=== PATIENT | male | born 1985 | race Two or more races ===

== ENCOUNTER 2025-04-30 14:38 | Inpatient (IN) | payer MEDICAID, OTHER ==
[~2025-04-30] VITALS: Ht 162.6 cm; Wt 79.7 kg
--- NOTE | 2025-04-30 15:28 | ED.PDOC ---
Musculoskeletal HPI Comments 40-year-old male presents to the emergency department with a chief complaint of lower extremity swelling. Patient states he has been experiencing left lower leg swelling and erythema x4 days. At this time patient is reluctant to answer questions regarding his social history. Patient denies trauma, injury, fall, shortness of breath, or chest pain. No other symptoms or modifying factors are present at this time. Chief Complaint: Lower Extremity Time Seen by MD: 15:25 Reviewed Notes: Nurses Notes, Medications, Allergies Allergies: Coded Allergies: NO KNOWN ALLERGIES (Unverified , 04/30/25) Information Source: Patient Mode of Arrival: Ambulatory Location: Left Extremity Location: Leg Timing: Days Prehospital treatment: None Severity: Moderate Able to Move Extremity: Yes Bear Weight: Fully Pain: Moderate Mechanism: Spontaneous Circumstances: Spontaneous Onset of Symptoms: Spontaneous Symptoms: Swelling, Pain, Erythema DVT Risk Factors: NONE Last Tetanus: Unknown Associated signs and symptoms: Swelling, Leg pain Past Medical History PAST MEDICAL HISTORY: Denies Surgical History: Denies all surgeries Family History Family History: Unknown Social History Smoker: Cigarettes Alcohol: Denies ETOH Use Drugs: Unknown Lives In: Home Constitutional: denies: chills, diaphoresis, fatigue, fever, malaise, sweats, weakness, others EENTM: denies: blurred vision, double vision, ear bleeding, ear discharge, ear drainage, ear pain, ear ringing, eye pain, eye redness, hearing loss, mouth pain, mouth swelling, nasal discharge, nose bleeding, nose congestion, nose pain, photophobia, tearing, throat pain, throat swelling, voice changes, others Respiratory: denies: cough, hemoptysis, orthopnea, SOB at rest, shortness of breath, SOB with excertion, stridor, wheezing, others Cardiovascular: denies: chest pain, dizzy spells, diaphoresis, Dyspnea on exertion, edema, irregular heart beat, left arm pain, lightheadedness, palpitations, PND, syncope, others Gastrointestinal: denies: abdomen distended, abdominal pain, blood streaked bowels, constipated, diarrhea, dysphagia, difficulty swallowing, hematemesis, melena, nausea, poor appetite, poor fluid intake, rectal bleeding, rectal pain, vomiting, others Genitourinary: denies: burning, dysuria, flank pain, frequency, hematuria, incontinence, penile discharge, penile sore, pain, testicle pain, testicle swelling, urgency, others Neurological: denies: dizziness, fainting, headache, left sided numbness, left sided weakness, numbness, paresthesia, pre-existing deficit, right sided numbness, right sided weakness, seizure, speech problems, tingling, tremors, weakness, others Musculoskeletal: reports: others (Lower leg swelling, erythema); denies: back pain, gout, joint pain, joint swelling, muscle pain, muscle stiffness, neck pain Integumetry: denies: bruises, change in color, change in hair/nails, dryness, laceration, lesions, lumps, rash, wounds, others Allergic/Immunocompromised: denies: Difficulty Healing, Frequent Infections, Hives, Itching, others Hematologic/Lymphatic: denies: anemia, blood clots, easy bleeding, easy bruising, swollen glands, others Endocrine: denies: excessive hunger, excessive sweating, excessive thirst, excessive urination, flushing, intolerance to cold, intolerance to heat, unexplained weight gain, unexplained weight loss, others Psychiatric: denies: anxiety, bipolar disorder, depression, hopeless, panic disorder, schizophrenia, sleepless, suicidal, others All Other Systems: Reviewed and Negative Physical Exam General Appearance: Moderate Distress HEENT: Normal ENT Inspection, Pharynx Normal, TMs Normal Neck: Full Range of Motion, Non-Tender, Normal, Normal Inspection Respiratory: Chest Non-Tender, Lungs Clear, No Accessory Muscle Use, No Respiratory Distress, Normal Breath Sounds Cardiovascular: No Edema, No JVD, No Murmur, No Gallop, Normal Peripheral Pulses, Regular Rate/Rhythm Breast Exam: Deferred Gastrointestinal: No Organomegaly, Non Tender, No Pulsatile Mass, Normal Bowel Sounds, Soft Genitalia: Deferred Pelvic: Deferred Rectal: Deferred Extremities: No calf tenderness, Normal capillary refill, No pedal edema Musculoskeletal : Apperance: Normal Neurologic: Alert, refrigerator glazier II-XII nml as Tested, No Motor Deficits, Normal Affect, Normal Mood, No Sensory Deficits Cerebellar Function: Normal Reflexes: Normal Skin: Dry, Rash (icant significant redness to the left lower extremity with swelling), Warm Lymphatic: No Adenopathy Was a procedure done? Was a procedure done?: No Differential Diagnosis EXT Differential Diagnosis: Cellulitis, Deep Vein Thrombosis X-Ray, Labs, Meds, VS Vital Signs Date Time Temp Pulse Resp B/P (MAP) Pulse Ox O2 Delivery O2 Flow Rate FiO2 04/30/25 15:19 98.8 100 18 131/81 (98) 98 98.8 04/30/25 14:39 98.3 116 19 118/77 98 98.3 Lab Test 04/30/25 16:15 Range/Units White Blood Count 11.3 H 4.4-10.8 10^3/uL Red Blood Count 3.95 L 4.5-5.90 10^6/uL Hemoglobin 12.2 L 13.5-17.5 g/dL Hematocrit 36.0 L 41.0-53.0 % Mean Corpuscular Volume 91.1 80.0-100.0 fL Mean Corpuscular Hemoglobin 30.9 28.0-32.0 pg Mean Corpuscular Hemoglobin Concent 33.9 32.0-36.0 g/dL Red Cell Distribution Width 13.1 11.8-14.3 % Platelet Count 303 140-450 10^3/uL Mean Platelet Volume 7.8 6.9-10.8 fL Neutrophils (%) (Auto) 70.1 37.0-80.0 % Lymphocytes (%) (Auto) 12.6 10.0-50.0 % Monocytes (%) (Auto) 13.8 H 0.0-12.0 % Eosinophils (%) (Auto) 3.2 0.0-7.0 % Basophils (%) (Auto) 0.3 0.0-2.0 % Neutrophils # (Auto) 7.9 1.6-8.6 10 ^3/uL Lymphocytes # (Auto) 1.4 0.4-5.4 10 ^3/uL Monocytes # (Auto) 1.6 H 0-1.3 10 ^3/uL Eosinophils # (Auto) 0.4 0-0.8 10 ^3/uL Basophils # (Auto) 0 0-0.2 10 ^3/uL Nucleated Red Blood Cells 0.1 % Sodium Level 141 136-145 mmol/L Potassium Level 4.1 3.5-5.1 mmol/L Chloride Level 113 H 98-107 mmol/L Carbon Dioxide Level 25 20-31 mmol/L Anion Gap 3 L 5-15 Blood Urea Nitrogen 11 9-23 mg/dL Creatinine 0.92 0.700-1.30 mg/dL Glomerular Filtration Rate Calc 107 >90 mL/min BUN/Creatinine Ratio 12.0 10.0-20.0 Serum Glucose 102 74-106 mg/dL Calcium Level 8.8 8.7-10.4 mg/dL Ultrasound of the left lower extremity is pending The patient's CBC shows an elevated white blood cell count count of 11.3 The chemistry panel is within normal limits The patient's infection is significant and needs IV antibiotics The patient is started on clindamycin IV piggyback The patient is admitted Time of 1ST Reevaluation: 15:55 Reevaluation 1ST: Unchanged Patient Education/Counseling: Diagnosis, Treatment, Prognosis Family Education/Counseling: No Family Present Departure 1 Departure Time of Disposition: 17:56 Impression: Primary Impression: Left leg cellulitis Disposition: ADMITTED INPATIENT Admit to: Med Surg Condition: Fair Critical Care Note Critical Care Time?: No Stability Stability form required: Yes Unstable for transfer: ED Physician Assesment (Clinical assesment) Heart Score Heart Score: Heart Score Response (Comments) Value History N/A 0 EKG N/A 0 Age N/A 0 Risk Factors N/A 0 Troponin N/A 0 Total 0 I personally scribed for JENNIE PETRESON MD ([email or web address]) on 04/30/25 at 15:28. Electronically submitted by Aubrie Watson ([email or web address]). JENNIE PETERSON MD Apr 30, 2025 15:28
[2025-04-30 16:45] LABS: Hematocrit 36.0 % (41.0-53.0); Hemoglobin 12.2 g/dL (13.5-17.5); Mean Corpuscular Hemoglobin 30.9 pg (28.0-32.0); Mean Corpuscular Volume 91.1 fL (80.0-100.0); Nucleated Red Blood Cells % 0.1 %
[2025-04-30 16:49] LABS: Anion Gap 3 (5-15); Carbon Dioxide 25 mmol/L (20-31); Potassium 4.1 mmol/L (3.5-5.1); Sodium 141 mmol/L (136-145)
[2025-04-30 16:51] LABS: Calcium 8.8 mg/dL (8.7-10.4)
[2025-04-30 16:56] LABS: BUN/Creatinine Ratio 12.0 (10.0-20.0); Blood Urea Nitrogen 11 mg/dL (9-23); Chloride 113 mmol/L (98-107); Glucose 102 mg/dL (74-106)
[2025-04-30] MEDS ORDERED: DOCUSATE SOD 100 MG CAP PO PRN (17:45)
[2025-04-30] MEDS ORDERED: VANCOMYCIN PER PHARMACY 0 MG IV SCH (17:45)
[2025-04-30] MEDS ORDERED: NITROGLYCERIN 0.4 MG SL TAB SL PRN (17:45)
[2025-04-30] MEDS ORDERED: ACETAMINOPHEN 325 MG TAB PO PRN (17:45)
[2025-04-30] MEDS ORDERED: ONDANSETRON HCL 4 MG/2 ML VIAL IV PRN (17:45)
[2025-04-30] MEDS ORDERED: MORPHINE SULFATE 4 MG/ML SYR/VIAL IV PRN ×2 (18:00)
--- NOTE | 2025-04-30 18:15 | DVHHPRES ---
History of Present Illness Resident Creating Document: NEHEMIAH RAMIRES RESIDENT History of Present Illness Mr. Lew,a 40-year-old male presents to the ED with a 4-day history of left lower leg swelling, erythema, and moderate pain. Symptoms began spontaneously without trauma, injury, or identifiable triggers. He denies insect bite, notable injury to the limb, chest pain, shortness of breath, or other systemic complaints. The patient is ambulatory, able to bear weight, and move the extremity. On exam, the swelling is localized to the left leg with moderate severity. No prehospital treatment was administered, and there are no known DVT risk factors. He denies following with PCP or any past medical history known to him. Past Medical History: None. Surgical History: None. Family History: Non contributory, denies thromboembolic disease in immediate family. Personal and Social History: Denies heavy alcohol and substance use, stays at a 'temporary place' with friend. Smoke: No Review of Systems Constitutional: Yes: Malaise Eyes: No: Pain, Vision change, Conjunctivae inflammation, Eyelid inflammation, Other, Redness ENT: No: Ear pain, Ear discharge, Nose pain, Nose discharge, Nose congestion, Mouth pain, Mouth swelling, Throat pain, Throat swelling, Other Respiratory: No: Cough, Dry, Shortness of breath, SOB with excertion, Wheezing, Hemoptysis, Pleuritic Pain, Sputum, Wheezing, Other Cardiovascular: No: Chest Pain, Palpitations, Orthopnea, Paroxysmal Noc. Dyspnea, Edema, Lt Headedness, Other Gastrointestinal: No: Nausea, Vomiting, Abdominal Pain, Diarrhea, Constipation, Melena, Hematochezia, Other Genitourinary: No Dysuria, No Frequency, No Incontinence, No Hematuria, No Retention, No Other Musculoskeletal: leg pain; No: other, neck pain, shoulder pain, arm pain, back pain, hand pain, foot pain Skin: Rash, Lesions; No: Jaundice, Bruising, Other Neurological: No: Weakness, Numbness, Incoordination, Change in speech, Confusion, Seizures, Other Allergies: Coded Allergies: NO KNOWN ALLERGIES (Unverified , 04/30/25) Medications Current Medications Medications Dose Ordered Sig/Madyson Route Start Time Stop Time Status Last Admin Dose Admin Sodium Chloride 1,000 ml @ 120 mls/hr Q8H20M IV 04/30/25 17:45 UNV Ondansetron HCl 4 mg Q4HP PRN IV 04/30/25 17:45 UNV Docusate Sodium 100 mg BIDPRN PRN PO 04/30/25 17:45 UNV Acetaminophen 650 mg Q6HP PRN PO 04/30/25 17:45 UNV Morphine Sulfate 2 mg Q4HPRN PRN IV 04/30/25 17:45 UNV Nitroglycerin 0.4 mg Q5MINP PRN SL 04/30/25 17:45 UNV Morphine Sulfate 2 mg Q30M PRN IV 04/30/25 17:45 UNV Exam Vital Signs Vital Signs Date Time Temp Pulse Resp B/P (MAP) Pulse Ox O2 Delivery O2 Flow Rate FiO2 04/30/25 15:19 98.8 100 18 131/81 (98) 98 98.8 Exam left foot redness, tenderness, distal pulse and neurovascular findings assuring. General Appearance: Alert, Oriented X3, No acute distress HEENT: Atraumatic, PERRLA, EOMI, Mucous membr. moist/pink Respiratory: Clear to auscultation, Normal air movement Cardiovascular: Regular rate, Normal S1, Normal S2, No murmurs Abdominal: Normal bowel sounds, Soft, No tenderness, No hepatospenomegaly, No masses Extremities: No clubbing, No cyanosis, No edema, Normal pulses, No tenderness/swelling Neuro: Normal gait, Normal speech, Strength at 5/5 X4 ext, Normal tone, Sensation intact Psych/Mental Status: Mental status NL, Mood NL Labs/Xrays Labs Test 04/30/25 16:15 Range/Units White Blood Count 11.3 H 4.4-10.8 10^3/uL Red Blood Count 3.95 L 4.5-5.90 10^6/uL Hemoglobin 12.2 L 13.5-17.5 g/dL Hematocrit 36.0 L 41.0-53.0 % Mean Corpuscular Volume 91.1 80.0-100.0 fL Mean Corpuscular Hemoglobin 30.9 28.0-32.0 pg Mean Corpuscular Hemoglobin Concent 33.9 32.0-36.0 g/dL Red Cell Distribution Width 13.1 11.8-14.3 % Platelet Count 303 140-450 10^3/uL Mean Platelet Volume 7.8 6.9-10.8 fL Neutrophils (%) (Auto) 70.1 37.0-80.0 % Lymphocytes (%) (Auto) 12.6 10.0-50.0 % Monocytes (%) (Auto) 13.8 H 0.0-12.0 % Eosinophils (%) (Auto) 3.2 0.0-7.0 % Basophils (%) (Auto) 0.3 0.0-2.0 % Neutrophils # (Auto) 7.9 1.6-8.6 10 ^3/uL Lymphocytes # (Auto) 1.4 0.4-5.4 10 ^3/uL Monocytes # (Auto) 1.6 H 0-1.3 10 ^3/uL Eosinophils # (Auto) 0.4 0-0.8 10 ^3/uL Basophils # (Auto) 0 0-0.2 10 ^3/uL Nucleated Red Blood Cells 0.1 % Sodium Level 141 136-145 mmol/L Potassium Level 4.1 3.5-5.1 mmol/L Chloride Level 113 H 98-107 mmol/L Carbon Dioxide Level 25 20-31 mmol/L Anion Gap 3 L 5-15 Blood Urea Nitrogen 11 9-23 mg/dL Creatinine 0.92 0.700-1.30 mg/dL Glomerular Filtration Rate Calc 107 >90 mL/min BUN/Creatinine Ratio 12.0 10.0-20.0 Serum Glucose 102 74-106 mg/dL Calcium Level 8.8 8.7-10.4 mg/dL SEPSIS Sepsis Screen Date sepsis recognized/suspect: Apr 30, 2025 Time Sepsis recognized/suspect: 1439 Recent Procedure: No On Antibiotic Therapy: No Respiratory Rate >20: No Heart Rate >90: Yes Temp<36 C (96.8 F) or >38.3 C: No SBP <90 or MAP <65 mmHG: No New Acute Mental Status Change: No Is the patient on CPAP, BIPAP,: No Physician Orders Urinalysis (04/30/25 16:00) Heplock Iv (04/30/25 16:00) Lt Lower Dvt (04/30/25 16:00) Drug Screen (04/30/25 16:00) Admit (04/30/25 17:45) Allergies (04/30/25 17:45) Code Status (04/30/25 17:45) Sodium Chloride 0.9% (04/30/25 17:45) Ondansetron Hcl (Zofran) (04/30/25 17:45) Docusate Sodium Capsule (Colace Capsule) (04/30/25 17:45) Fall Risk Precautions In Place QSHIFT (04/30/25 17:45) Complete Blood Count (05/01/25 04:00) Comprehensive Metabolic Panel (05/01/25 04:00) Cardiac Diet-2gna,Lofat,Lochol (04/30/25 Dinner) Echo 2d Mode Cardiac Dop (04/30/25 17:45) Condition: Serious (04/30/25 17:45) Acetaminophen Tablet (Tylenol Tablet) (04/30/25 17:45) Morphine Sulfate Injection (04/30/25 17:45) Nitroglycerin Sublingual (Ntrostat Subli (04/30/25 17:45) Morphine Sulfate Injection (04/30/25 17:45) Oxygen By Nasal Cannula (04/30/25:45) Stat Ekg For Chest Pain (04/30/25 17:45) Notify Md Of Changes From Base (04/30/25 17:45) Ultrasonic Seaming Machine Operator For 24 Hours (04/30/25 17:45) Emergency Dysrhythmia Protocol (04/30/25 17:45) Rhythm Strips Once Every Shift (04/30/25 17:45) Vancomycin (04/30/25 17:45) Bilat Lower Dvt (04/30/25 17:45) Vital Signs Date Time Temp Pulse Resp B/P (MAP) Pulse Ox O2 Delivery O2 Flow Rate FiO2 04/30/25 15:19 98.8 100 18 131/81 (98) 98 98.8 04/30/25 14:39 98.3 116 19 118/77 98 98.3 Laboratory Tests Test 04/30/25 16:15 White Blood Count 11.3 10^3/uL (4.4-10.8) H Assessment/Plan Assessment/Plan Assessment and Plan: # likely left leg cellulitis: Left leg pain, swelling , edema, pain mild elevation of white count, pain control, rule out DVT, vancomycin to continue cultures pending, otherwise hemodynamically stable, rule out ischemia lactate check. # grade 1 obesity: 31.2 BMI, weight loss counseling done bedside # sinus tachycardia: Afebrile could be due to pain, pain control, if patient desaturates check D-dimer, consider PE/ DVT evaluation. Check TSH, ruled out other causes of infection with a UA, check UDS # Constipation: on opioid pain control, as needed docusate # R/o compartment syndrome: distally neurovascular function intact, recurrent evaluation needed. if needed check CT leg. # Mild transaminitis: cmp follow up Diet: regular PUD prophylaxis: famotidine bid DVT prophylaxis: Levonox 40mg sc daily. Barriers to discharge: Medical diagnosis and management in progress. Patient lives with family. Independent for ADL. PCP: healthcare marketer, [facility] Relevant To Admission: None Case discussed with Dr. Cabrera. Code Status: Full Code. Discussion needed total 31 minutes bedside. Plan discussed with: Patient My Orders Orders - NEHEMIAH RAMIRES RESIDENT Procedure Category Date Status Time Admit ADMIT 04/30/25 Transmitted 17:45 Allergies [facility] 04/30/25 In Process 17:45 Code Status CODE 04/30/25 Transmitted 17:45 Sodium Chloride 0.9% PHA 04/30/25 Logged 17:45 Ondansetron Hcl PHA 04/30/25 Logged (Zofran) 17:45 Docusate Sodium PHA 04/30/25 Logged Capsule (Colace 17:45 Fall Risk Precautions [facility] 04/30/[address] 17:45 Complete Blood Count LAB 05/01/25 Verified 04:00 Comprehensive LAB 05/01/25 Verified Metabolic Panel 04:00 Cardiac DIET 04/30/25 Transmitted Diet-2gna,Lofat,Lochol Dinner Echo 2d Mode Cardiac US 04/30/25 Logged DOP 17:45 Condition: Serious [facility] 04/30/25 In Process 17:45 Acetaminophen Tablet PHA 04/30/25 Logged (Tylenol Tablet) 17:45 Morphine Sulfate PHA 04/30/25 Logged Injection 17:45 Nitroglycerin PHA 04/30/25 Logged Sublingual (Ntrostat 17:45 Morphine Sulfate PHA 04/30/25 Logged Injection 17:45 Oxygen By Nasal RT 04/30/25 Transmitted Cannula 17:45 Stat Ekg For Chest [facility] 04/30/25 In Process Pain 17:45 Notify Of Changes [facility] 04/30/25 In Process From Base 17:45 Ultrasonic Seaming Machine Operator For [facility] 04/30/25 In Process 24 Hours 17:45 Emergency Dysrhythmia [facility] 04/30/25 In Process Protocol 17:45 Rhythm Strips Once [facility] 04/30/25 In Process Every Shift 17:45 Vancomycin PHA 04/30/25 Transmitted 17:45 Bilat Lower Dvt 04/30/25 Logged 17:45 Date of Service: Apr 30, 2025 Billing Provider: SANDRA CABRERA MD Common Visit Codes: 23151-TAUFLRY INP/OBS CARE (HIGH) Secondary Visit Codes: 16150-TAEEYOGO CARE PLAN 30 MINUTES NEHEMIAH RAMIRES RESIDENT Apr 30, 2025 18:15
--- NOTE | 2025-04-30 19:11 | DVH ---
EXAM: US BILAT LOWER DVT HISTORY: leg swelling. COMPARISON: None TECHNIQUE: Duplex Doppler evaluation of the deep venous systems of both lower extremities from the common femoral veins to the popliteal veins including color Doppler and spectral/pulsed waveform analysis was performed. FINDINGS: RIGHT SIDE: The common femoral vein demonstrates appropriate compressibility and waveform variability. There is compressibility/patency of the great saphenous vein at the proximal thigh. The femoral vein demonstrates appropriate compressibility and waveform variability. The deep femoral vein demonstrates appropriate compressibility and waveform variability. The popliteal vein demonstrates appropriate compressibility and waveform variability. There is normal compressibility at the tibioperoneal trunk. LEFT SIDE: The common femoral vein demonstrates appropriate compressibility and waveform variability. There is compressibility/patency of the great saphenous vein at the proximal thigh. The femoral vein demonstrates appropriate compressibility and waveform variability. The deep femoral vein demonstrates appropriate compressibility and waveform variability. The popliteal vein demonstrates appropriate compressibility and waveform variability. There is normal compressibility at the tibioperoneal trunk. Question nonocclusive thrombus of the greater saphenous vein below the knee to calf area of the left lower extremity. Multiple likely reactive left inguinal lymph nodes IMPRESSION: 1. Question nonocclusive thrombus of the greater saphenous vein below the knee to calf area of the left lower extremity. Multiple likely reactive left inguinal lymph nodes If clinical concern/symptoms persist or worsen, short-interval follow-up study is suggested.
[2025-04-30 19:35] LABS: Albumin 4.0 g/dL (3.2-4.8); Alkaline Phosphatase 97.0 U/L (46-116); Bilirubin, Direct 0.1 mg/dL (<0.3); Bilirubin, Total 0.3 mg/dL (0.2-1.0); Total Protein 7.0 g/dL (5.7-8.2)
[2025-04-30 19:39] LABS: Alanine Aminotransferase 81.0 U/L (7-40)
[2025-04-30 20:31] VITALS: PULSE 92; RESP 18; O2SAT 100
[2025-04-30] MEDS: CLINDAMYCIN 600MG IV 50 ML IV ONE (20:41)
[2025-04-30] MEDS: ENOXAPARIN SOD 40 MG/0.4 ML SYRINGE SC SCH (20:42)
[2025-04-30] MEDS: SODIUM CHLORIDE 0.9% 500 ML IV ONE (20:42)
[2025-04-30] MEDS: VANCOMYCIN 1GM/250ML KIT 250 ML IV SCH (20:42)
[2025-04-30] MEDS: SODIUM CHLORIDE 0.9% 1,000 ML IV SCH (21:53)
[2025-04-30 23:35] VITALS: BP 136/77; PULSE 84; RESP 16; TEMP 97.7; O2SAT 99
[2025-05-01] VITALS (8 sets, daily range): BP systolic 110–143; BP diastolic 65–82; PULSE 77–102; RESP 16–18; TEMP 97.6–98.6; O2SAT 96–100
[2025-05-01 00:45] LABS: Hematocrit 36.1 % (41.0-53.0); Hemoglobin 12.0 g/dL (13.5-17.5); Mean Corpuscular Hemoglobin 30.5 pg (28.0-32.0); Mean Corpuscular Volume 91.5 fL (80.0-100.0); Nucleated Red Blood Cells % 0.1 %
[2025-05-01 00:59] LABS: Alanine Aminotransferase 80 U/L (7-40); Albumin 4.0 g/dL (3.2-4.8); Alkaline Phosphatase 93 U/L (46-116); Anion Gap 7 (5-15); BUN/Creatinine Ratio 15.9 (10.0-20.0); Bilirubin, Total 0.4 mg/dL (0.2-1.0); Blood Urea Nitrogen 13 mg/dL (9-23); Calcium 8.9 mg/dL (8.7-10.4); Carbon Dioxide 27 mmol/L (20-31); Chloride 108 mmol/L (98-107); Glucose 110 mg/dL (74-106); Potassium 4.0 mmol/L (3.5-5.1); Sodium 142 mmol/L (136-145); Total Protein 6.9 g/dL (5.7-8.2)
[2025-05-01] MEDS ORDERED: VANCOMYCIN 1GM/250ML KIT 250 ML IV SCH (05:00)
--- NOTE | 2025-05-01 13:20 | DVHPN2 ---
Subjective feeling well today, still redness on left leg Reviewed: H&P Changes from previous H/P or p: No Changes Eyes: No Pain, No Vision change, No Conjunctivae inflammation, No Eyelid inflammation, No Other, No Redness ENT: No Ear pain, No Ear discharge, No Nose pain, No Nose discharge, No Nose congestion, No Mouth pain, No Mouth swelling, No Throat pain, No Throat swelling, No Other Cardiovascular: No Chest Pain, No Palpitations, No Orthopnea, No Paroxysmal Noc. Dyspnea, No Edema, No Lt Headedness, No Other Respiratory: No Cough, No Dry, No Shortness of breath, No SOB with excertion, No Wheezing, No Hemoptysis, No Pleuritic Pain, No Sputum, No Other Gastrointestinal: No Nausea, No Vomiting, No Abdominal Pain, No Diarrhea, No Constipation, No Melena, No Hematochezia, No Other Genitourinary: No Dysuria, No Frequency, No Incontinence, No Hematuria, No Retention, No Other Musculoskeletal: No other, No neck pain, No shoulder pain, No arm pain, No back pain, No hand pain; leg pain; No foot pain Skin: Rash, Lesions; No Jaundice, No Bruising, No Other Objective Vitals Vital Signs Date Time Temp Pulse Resp B/P (MAP) Pulse Ox O2 Delivery O2 Flow Rate FiO2 05/01/25 12:36 98.2 102 18 143/81 (101) 100 98.2 05/01/25 10:37 Room Air* 0 21 Intake/Output Intake and Output 05/01/25 07:00 Intake Total 1200 ml Balance 1200 ml Intake Oral 400 ml IV Total 800 ml # Voids 1 General Appearance: Alert, Oriented X3 HEENT: Atraumatic Cardiovascular: Regular rate, Normal S1, Normal S2 Abdomen: Normal bowel sounds Extremities: Other (left left redness all around up to knee) Medications Current Medications Medications Dose Ordered Sig/Madyson Route Start Time Stop Time Status Last Admin Dose Admin Sodium Chloride 1,000 ml @ 120 mls/hr Q8H20M IV 04/30/25 17:45 05/01/25 01:18 120 MLS/HR Ondansetron HCl 4 mg Q4HP PRN IV 04/30/25 17:45 Docusate Sodium 100 mg BIDPRN PRN PO 04/30/25 17:45 Acetaminophen 650 mg Q6HP PRN PO 04/30/25 17:45 Morphine Sulfate 2 mg Q4HPRN PRN IV 04/30/25 18:00 Nitroglycerin 0.4 mg Q5MINP PRN SL 04/30/25 17:45 Morphine Sulfate 2 mg Q30M PRN IV 04/30/25 18:00 Enoxaparin Sodium 40 mg DAILY SC 04/30/25 18:00 05/01/25 09:47 40 MG Tramadol HCl 50 mg Q8HP PRN PO 04/30/25 18:15 Laboratory Results Laboratory Tests 05/01/25 00:20 Chemistry Test 04/30/25 16:15 05/01/25 00:20 Albumin 4.0 g/dL (3.2-4.8) 4.0 g/dL (3.2-4.8) Calcium Level 8.8 mg/dL (8.7-10.4) 8.9 mg/dL (8.7-10.4) Total Protein 7.0 g/dL (5.7-8.2) 6.9 g/dL (5.7-8.2) Coagulation Test 04/30/25 16:15 D-Dimer, Quantitative 0.49 mg/L FEU (0.0-0.49) LFT Test 04/30/25 16:15 05/01/25 00:20 Alanine Aminotransferase (ALT) 81 U/L (7-40) H 80 U/L (7-40) H Alkaline Phosphatase 97 U/L (46-116) 93 U/L (46-116) Aspartate Amino Transferase (AST) 61 U/L (13-40) H 53 U/L (13-40) H Direct Bilirubin 0.1 mg/dL (<0.3) Total Bilirubin 0.3 mg/dL (0.2-1.0) 0.4 mg/dL (0.2-1.0) HgA1c, TSH Test 04/30/25 16:15 Thyroid Stimulating Hormone (TSH) 1.15 uIU/mL (0.55-4.78) Assessment/Plan Assessment/Plan # likely left leg cellulitis: Continue IV vanco # left leg superficial clot noted on US, no need for anticoagulation # grade 1 obesity: 31.2 BMI, weight loss counseling done bedside # sinus tachycardia: Afebrile could be due to pain, pain control, if patient desaturates check D-dimer, consider PE/ DVT evaluation. Check TSH, ruled out other causes of infection with a UA, check UDS # Constipation: on opioid pain control, as needed docusate # R/o compartment syndrome: distally neurovascular function with no signs of compartment # Mild transaminitis: cmp follow up Plan discussed with: Patient Date of Service: May 01, 2025 Billing Provider: KEVIN ORELLANA MD Common Visit Codes: [id number] INP/OBS CARE(HIGH) KEVIN ORELLANA MD May 01, 2025 13:20
[2025-05-02] VITALS (8 sets, daily range): BP systolic 110–136; BP diastolic 72–83; PULSE 86–100; RESP 16–18; TEMP 97.6–98.7; O2SAT 96–100
--- NOTE | 2025-05-02 12:05 | DVHSR ---
APPROVED REPORT EXAM: Two-dimensional and M-mode echocardiogram with Doppler and color Doppler. Blood Pressure: 117/78 mmHg INDICATION Rule out structural heart disease RISK FACTORS Height: 5'4", Weight: 181 DIMENSIONS LVDd 4.5 (3.8-5.7cm) LA (2D) 3.6 (1.9-4.0cm) Aortic Root 3.7 (2.0-3.7cm) LVDs 3.1 (2.5-4.0cm) LA (MM) (1.9-4.0cm) Aortic Cusp Exc 2.1 (1.5-2.0cm) EF (%) 60.0 (55-70%) Rt. Atrium 3.3 (1.9-4.0cm) Asc. Aorta cm IVSd 1.0 (0.7-1.1cm) RV (D) 3.9 (1.8-2.4cm) PWd 1.0 (0.7-1.1cm) Mitral Valve Mitral Mitral Stenosis E wave 1.06m/s MV Mean GR. mmHg A wave 0.99m/s MV Peak GR. mmHg E/A ratio 1.1 2D MVA cm2 DECEL Time 180ms PRESS 1/2 Time ms Aortic Valve Aortic Valve Aortic Stenosis V1 1.17m/s AO Mean GR. 4mmHg V2 1.35m/s AO Peak GR. 7mmHg LVOT Diameter 2.2 (1.8-2.4cm) Doppler NAYE 3.29cm2 Pulmonic Valve V2 1.22m/s Tricuspid Valve TR Velocity 2.80m/s RVSP 34mmHg Conclusion lvef 65% normal lvef normal rv function normal atria no severe valve abnormalities noted normal pericardium
[2025-05-02 12:14] LABS: Hematocrit 37.5 % (41.0-53.0); Hemoglobin 12.6 g/dL (13.5-17.5); Mean Corpuscular Hemoglobin 30.3 pg (28.0-32.0); Mean Corpuscular Volume 90.2 fL (80.0-100.0); Nucleated Red Blood Cells % 0.0 %
--- NOTE | 2025-05-02 12:17 | DVHPN2 ---
Subjective feeling well today, still redness on left leg Reviewed: H&P Changes from previous H/P or p: No Changes Eyes: No Pain, No Vision change, No Conjunctivae inflammation, No Eyelid inflammation, No Other, No Redness ENT: No Ear pain, No Ear discharge, No Nose pain, No Nose discharge, No Nose congestion, No Mouth pain, No Mouth swelling, No Throat pain, No Throat swelling, No Other Cardiovascular: No Chest Pain, No Palpitations, No Orthopnea, No Paroxysmal Noc. Dyspnea, No Edema, No Lt Headedness, No Other Respiratory: No Cough, No Dry, No Shortness of breath, No SOB with excertion, No Wheezing, No Hemoptysis, No Pleuritic Pain, No Sputum, No Other Gastrointestinal: No Nausea, No Vomiting, No Abdominal Pain, No Diarrhea, No Constipation, No Melena, No Hematochezia, No Other Genitourinary: No Dysuria, No Frequency, No Incontinence, No Hematuria, No Retention, No Other Musculoskeletal: No other, No neck pain, No shoulder pain, No arm pain, No back pain, No hand pain; leg pain; No foot pain Skin: Rash, Lesions; No Jaundice, No Bruising, No Other Objective Vitals Vital Signs Date Time Temp Pulse Resp B/P (MAP) Pulse Ox O2 Delivery O2 Flow Rate FiO2 05/02/25 08:44 97.9 97 18 110/72 (85) 98 97.9 05/02/25 07:45 Room Air* 0 21 Intake/Output Intake and Output 05/02/25 07:00 Intake Total 840 ml Balance 840 ml Intake Oral 840 ml General Appearance: Alert, Oriented X3 HEENT: Atraumatic Cardiovascular: Regular rate, Normal S1, Normal S2 Abdomen: Normal bowel sounds Extremities: Other (left left redness all around up to knee) Medications Current Medications Medications Dose Ordered Sig/Madyson Route Start Time Stop Time Status Last Admin Dose Admin Sodium Chloride 1,000 ml @ 120 mls/hr Q8H20M IV 04/30/25 17:45 05/02/25 03:05 120 MLS/HR Ondansetron HCl 4 mg Q4HP PRN IV 04/30/25 17:45 Docusate Sodium 100 mg BIDPRN PRN PO 04/30/25 17:45 Acetaminophen 650 mg Q6HP PRN PO 04/30/25 17:45 Morphine Sulfate 2 mg Q4HPRN PRN IV 04/30/25 18:00 Nitroglycerin 0.4 mg Q5MINP PRN SL 04/30/25 17:45 Morphine Sulfate 2 mg Q30M PRN IV 04/30/25 18:00 Enoxaparin Sodium 40 mg DAILY SC 04/30/25 18:00 05/02/25 09:32 40 MG Tramadol HCl 50 mg Q8HP PRN PO 04/30/25 18:15 Laboratory Results Laboratory Tests 05/02/25 11:44 Chemistry Test 05/02/25 11:44 Calcium Level Pending Microbiology Microbiology Date/Time Source Procedure Growth Status 05/01/25 00:30 Blood Blood Culture - Preliminary NO GROWTH AFTER 24 HOURS OF INCUBATION. Resulted Assessment/Plan Assessment/Plan # likely left leg cellulitis: Continue IV vanco # left leg superficial clot noted on US, no need for anticoagulation # grade 1 obesity: 31.2 BMI, weight loss counseling done bedside # sinus tachycardia: Afebrile could be due to pain, pain control, if patient desaturates check D-dimer, consider PE/ DVT evaluation. Check TSH, ruled out other causes of infection with a UA, check UDS # Constipation: on opioid pain control, as needed docusate # R/o compartment syndrome: distally neurovascular function with no signs of compartment # Mild transaminitis: cmp follow up Plan discussed with: Patient My Orders Orders - KEVIN ORELLANA MD Procedure Category Date Status Time Basic Metabolic Panel LAB 05/02/25 In Process 10:47 Date of Service: May 02, 2025 Billing Provider: KEVIN ORELLANA MD Common Visit Codes: [id number] INP/OBS CARE(HIGH) KEVIN ORELLANA MD May 02, 2025 12:17
[2025-05-02 12:25] LABS: Chloride 103 mmol/L (98-107); Potassium 4.1 mmol/L (3.5-5.1); Sodium 141 mmol/L (136-145)
[2025-05-02 12:26] LABS: Anion Gap 10 (5-15); Calcium 9.1 mg/dL (8.7-10.4); Carbon Dioxide 28 mmol/L (20-31)
[2025-05-02 12:31] LABS: BUN/Creatinine Ratio 10.9 (10.0-20.0); Blood Urea Nitrogen 7 mg/dL (9-23); Glucose 98 mg/dL (74-106)
[2025-05-03 01:00] VITALS: BP 133/93; PULSE 83; RESP 18; TEMP 97.7; O2SAT 98
[2025-05-03 05:00] VITALS: BP 119/85; PULSE 75; RESP 18; TEMP 98.6; O2SAT 98
[2025-05-03 08:00] VITALS: PULSE 86; RESP 18; O2SAT 98
[2025-05-03 09:00] VITALS: BP 118/78; PULSE 86; RESP 18; TEMP 97.2; O2SAT 98
[2025-05-03 11:06] LABS: Hematocrit 39.4 % (41.0-53.0); Hemoglobin 13.5 g/dL (13.5-17.5); Mean Corpuscular Hemoglobin 30.6 pg (28.0-32.0); Mean Corpuscular Volume 89.3 fL (80.0-100.0)
[2025-05-03 11:12] LABS: Chloride 103 mmol/L (98-107); Potassium 4.1 mmol/L (3.5-5.1); Sodium 139 mmol/L (136-145)
[2025-05-03 11:13] LABS: Anion Gap 10 (5-15); Calcium 9.1 mg/dL (8.7-10.4); Carbon Dioxide 26 mmol/L (20-31)
[2025-05-03 11:18] LABS: BUN/Creatinine Ratio 14.5 (10.0-20.0); Blood Urea Nitrogen 10 mg/dL (9-23)
[2025-05-03 11:19] LABS: Glucose 120 mg/dL (74-106)
[2025-05-03] MEDS ORDERED: DOXY1CAP57 PO (11:49)
[2025-05-03 12:04] LABS: Total Cells Counted 100.0 (100)
[2025-05-03 13:00] VITALS: BP 121/73; PULSE 90; RESP 18; TEMP 97.1; O2SAT 98
[2025-05-03 13:15] VITALS: BP 121/73; PULSE 90; RESP 18; TEMP 97.1; O2SAT 98
--- NOTE | 2025-05-03 13:39 | DVHDS2 ---
Discharge Summary Date of Admission Apr 30, 2025 at 17:45 Date of Discharge: May 03, 2025 Labs/Diagnostic Data: Laboratory Results Test 05/03/25 10:52 05/02/25 11:44 05/01/25 00:20 04/30/25 16:15 White Blood Count 11.1 10^3/uL (4.4-10.8) Red Blood Count 4.41 10^6/uL (4.5-5.90) Hemoglobin 13.5 g/dL (13.5-17.5) Hematocrit 39.4 % (41.0-53.0) Mean Corpuscular Volume 89.3 fL (80.0-100.0) Mean Corpuscular Hemoglobin 30.6 pg (28.0-32.0) Mean Corpuscular Hemoglobin Concent 34.2 g/dL (32.0-36.0) Red Cell Distribution Width 12.8 % (11.8-14.3) Platelet Count 461 10^3/uL (140-450) Mean Platelet Volume 7.1 fL (6.9-10.8) Neutrophils (%) (Auto) % (37.0-80.0) Lymphocytes (%) (Auto) % (10.0-50.0) Monocytes (%) (Auto) % (0.0-12.0) Basophils (%) (Auto) % (0.0-2.0) Neutrophils # (Auto) 10 ^3/uL (1.6-8.6) Lymphocytes # (Auto) 10 ^3/uL (0.4-5.4) Monocytes # (Auto) 10 ^3/uL (0-1.3) Differential Total Cells Counted 100.0 (100) Neutrophils % (Manual) 67 (37.0-80.0) Band Neutrophils % (Manual) 0 Lymphocytes % (Manual) 18 (10.0-50.0) Monocytes % (Manual) 13 (0-12) Eosinophils % (Manual) 2 (0-7) Basophils % (Manual) 0 (0.0-2.0) Metamyelocytes % (manual) 0 Myelocytes % (Manual) 0 Promyelocytes % (Manual) 0 Blast Cells % (Manual) 0 Reactive Lymphocytes 0 Platelet Estimate Increased Sodium Level 139 mmol/L (136-145) Potassium Level 4.1 mmol/L (3.5-5.1) Chloride Level 103 mmol/L (98-107) Carbon Dioxide Level 26 mmol/L (20-31) Anion Gap 10 (5-15) Blood Urea Nitrogen 10 mg/dL (9-23) Creatinine 0.69 mg/dL (0.700-1.30) Glomerular Filtration Rate Calc 118 mL/min (>90) BUN/Creatinine Ratio 14.5 (10.0-20.0) Serum Glucose 120 mg/dL (74-106) Calcium Level 9.1 mg/dL (8.7-10.4) Eosinophils (%) (Auto) 1.9 % (0.0-7.0) Eosinophils # (Auto) 0.2 10 ^3/uL (0-0.8) Basophils # (Auto) 0 10 ^3/uL (0-0.2) Nucleated Red Blood Cells 0.0 % Lactic Acid Level 1.3 mmol/L (0.4-2.0) Total Bilirubin 0.4 mg/dL (0.2-1.0) Aspartate Amino Transferase (AST) 53 U/L (13-40) Alanine Aminotransferase (ALT) 80 U/L (7-40) Alkaline Phosphatase 93 U/L (46-116) Total Protein 6.9 g/dL (5.7-8.2) Albumin 4.0 g/dL (3.2-4.8) D-Dimer, Quantitative 0.49 mg/L FEU (0.0-0.49) Direct Bilirubin 0.1 mg/dL (<0.3) Thyroid Stimulating Hormone (TSH) 1.15 uIU/mL (0.55-4.78) Other Laboratory Tests 05/03/25 10:52 Brief Hx & Hospital Course: 40-year-old male presents to the ED with a 4-day history of left lower leg swelling, erythema, and moderate pain. Symptoms began spontaneously without trauma, injury, or identifiable triggers. He denies insect bite, notable injury to the limb, chest pain, shortness of breath, or other systemic complaints. The patient is ambulatory, able to bear weight, and move the extremity. On exam, the swelling is localized to the left leg with moderate severity. No prehospital treatment was administered, and there are no known DVT risk factors. He denies following with PCP or any past medical history known to him. Came with left leg cellulitis that got better and sent home on oral doxycycline. Condition at Discharge: Good Final Diagnosis/Problems List left leg cellulitis Discharge Disposition: Home Discharge Instruct/Medications Diet: Regular Activity: No Restrictions, As Tolerated Follow Up/Referral: PCP in 7 days Medications: doxycyline Scheduled Doxycycline Monohydrate (Doxycycline Monohydrate), 1 CAP PO BID Discharge Statement: "Patient was advised to return to the ER or call 911 if any headaches, dizziness, shortness of breath, chest pain, abdominal pain, bleeding, fevers, or worsening of medical condition. Patient was counseled about treatment plan, medications, possible side effects, patientverbalized understanding. All questions were answered to the best of my ability. This discharge took greater then 30 minutes in planning, reviewing documentation, counseling the patient, and discussing with other team members." ASSESSMENT ASSESSMENT Assessment left leg cellulitis Date of Service: May 03, 2025 Billing Provider: KEVIN ORELLANA MD Common Visit Codes: [id number] DISCH DAY >30min KEVIN ORELLANA MD May 03, 2025 13:39
== END 2025-05-03 14:21 | disposition home or self-care (01) | DRG 383 ==
LOC: ER 14:38 → OVERFLOW 17:45 → EAST 05-01 21:25
PROVIDERS: ADMIT Hospitalist; ATTEND Hospitalist
DX: L03.116 Cellulitis of left lower limb (principal); E66.9 Obesity, unspecified; K59.00 Constipation, unspecified; R00.0 Tachycardia, unspecified; F17.210 Nicotine dependence, cigarettes, uncomplicated; Z68.31 Body mass index [BMI] 31.0-31.9, adult; R74.01 Elevation of levels of liver transaminase levels
CPT/HCPCS: 36415; 80048; 80053; 80076; 83605; 84443; 85007; 85025; 85027; 85379; 87040; 93306; 93970; G0378; J3490